=== PATIENT | female | born 2000 | race Caucasian/White ===

== ENCOUNTER 2019-08-24 17:21 | Emergency (ER) | payer MEDICAID, OTHER ==
[~2019-08-24] VITALS: Ht 165.1 cm; Wt 70.0 kg
[~2019-08-24 17:21] MED LIST: ACYC-202 PO; NORG1TAB90 PO; PRED10TA PO
--- NOTE | 2019-08-24 17:58 | NUR ---
PATIENT COMPLAINTS REGARDING NOT FEELING WELL FOR 3 DAYS: COUGH, NON PRODUCTIVE, SLIGHTLY SORE THROAT, NAUSEA/DIARRHEA AND FLULIKE SYMPTOMS
--- NOTE | 2019-08-24 18:01 | NUR ---
PATIENT PROVIDED APPLE JUICE TO DRINK, NO NAUSEA
[2019-08-24 19:34] VITALS: BP 125/74
== END 2019-08-24 19:30 | disposition home or self-care (01) ==
LOC: ER 17:22
DX: J10.1 Influenza due to other identified influenza virus with other respiratory manifestations (principal); Z79.899 Other long term (current) drug therapy
CPT/HCPCS: 87502; 87503; 99283